=== PATIENT | male | born 1935 | race Caucasian/White ===

== ENCOUNTER 2017-12-12 13:06 | Inpatient (IN) | payer MEDICARE ==
[2017-12-12] MEDS ORDERED: SODIUM CHLORIDE 0.9% 500 ML IV STA (13:23)
--- NOTE | 2017-12-12 13:27 | ED ---
Syncope HPI - General Chief Complaint: Syncope Stated Complaint: Syncope Time Seen by Provider: 12/12/17 13:12 Source: patient, family Mode of arrival: ambulatory Limitations: no limitations - History of Present Illness Initial Comments: Patient is an 81-year-old male presenting for syncope. is bedside and states that approximately one hour ago, the patient stepped out side to the deck to get some fresh air and then when he came in, he collapsed striking the right side of his head on the floor. He denies any significant prodromal type symptoms other than some mild lightheadedness. After he collapsed, the states that he was blowing air through his mouth but had no tonic-clonic type activity and that he did urinate himself. Additionally, the symptoms lasted approximately 3-4 minutes and when he regained consciousness, he was not confused and was aware of what was going on. He also adamantly denies any significant symptoms including headache, nausea/vomiting/diarrhea, chest pain/ shortness breath, back pain, neck pain both before and after the event. He states that he is also very healthy and that he takes no medications. - Related Data Allergies Allergy/AdvReac Type Severity Reaction Status Date / Time No Known Allergies Allergy Verified 12/12/17 13:11 Review of Systems ROS Statement: Those systems with pertinent positive or pertinent negative responses have been documented in the HPI. Constitutional: Negative for chills, fatigue and fever. HENT: Negative for congestion. Respiratory: Negative for chest tightness, shortness of breath and wheezing. Negative for cough Cardiovascular: Negative for chest pain and palpitations. Positive for syncope Gastrointestinal: Negative for abdominal pain. Negative for abdominal distention , diarrhea, nausea and vomiting. Genitourinary: Negative for dysuria. Musculoskeletal: Negative for back pain, neck pain and neck stiffness. Skin: Positive for color change. Neurological: Negative for dizziness, speech difficulty, weakness and positive for light-headedness. Psychiatric/Behavioral: Negative for agitation and confusion. The patient is not nervous/anxious. ROS Other: All systems not noted in ROS Statement are negative. Past Medical History Past Medical History: No Reported History History of Any Multi-Drug Resistant Organisms: None Reported Additional Past Surgical History / Comment(s): kidney stone Past Psychological History: No Psychological Hx Reported Smoking Status: Former smoker Past Alcohol Use History: None Reported Past Drug Use History: None Reported General Exam - General Exam Comments Initial Comments: Constitutional: Pt is oriented to person, place, and time. Pt appears well- developed and well-nourished. No distress. HENT: Head: Normocephalic and small abrasion less than 1 cm on the lateral aspect of the left eye in the temporal region. Eyes: EOM are normal. Neck: Normal range of motion. Neck supple. Cardiovascular: Normal rate, regular rhythm, S1 normal, S2 normal and normal heart sounds. Exam reveals no gallop and no friction rub. No murmur heard. Pulmonary/Chest: Effort normal and breath sounds normal. No tachypnea and no bradypnea. No respiratory distress. No wheezes or rales noted. Abdominal: Soft. Bowel sounds are normal. Pt exhibits no shifting dullness, no distension, no pulsatile liver, no fluid wave, no abdominal bruit and no ascites. There is no tenderness. There is no rigidity, no rebound, no guarding, no tenderness at McBurney's point and negative John's sign. Musculoskeletal: Normal range of motion. Neurological: Pt is alert and oriented to person, place, and time. No cranial nerve deficit. Skin: Skin is warm and dry. No rash noted. Pt is not diaphoretic. No erythema. No pallor. Psychiatric: Pt has a normal mood and affect. Pt behavior is normal. Thought content normal. Limitations: no limitations Course Vital Signs 12/12/17 12/12/17 13:08 13:50 Temperature 98.0 F Pulse Rate 79 Pulse Rate [ 77 Sitting] Pulse Rate [ 80 Standing] Pulse Rate [ 75 Supine] Respiratory 20 Rate Blood Pressure 165/72 Blood Pressure 156/75 [Sitting] Blood Pressure 157/74 [Standing] Blood Pressure 162/76 [Supine] O2 Sat by Pulse 98 Oximetry EKG Findings - EKG Comments: EKG Findings:: EKG shows normal sinus rhythm with a rate of 75 bpm, FL interval 148, QRS 102, QTC 424. There is less than [address] elevation in lead V1 as well as V5. There are nonspecific T-wave inversions in leads V3, V4, V5, V6. Medical Decision Making - Medical Decision Making Laboratory studies showed a hemoglobin was stable at 13 and electrolytes did show mild hyperkalemia at 5.2. Glucose was normal at [address] showed no evidence of acute pathology. Troponin was also noted to be negative. However, chest x-ray did show some cardiomegaly and signs of possible bilateral effusions. EKG also showed some T-wave inversions in the lateral leads as well as ST elevation in V1. Therefore because of the patient's age of [age] years old as well as these findings and risk of repeat episode and other head trauma, it was felt that the patient should be placed in observation for further evaluation and treatment.Explained all labs and diagnostic test results and that we will admit patient to hospital. Pt is agreeable to plan and case has been discussed with Dr. Acevedo and they agree to accept the pt. - Lab Data Result diagrams: 12/12/17 13:33 12/12/17 13:33 Lab Results 12/12/17 12/12/17 12/12/17 Range/Units 13:33 13:33 13:33 WBC 9.0 (3.8-10.6) k/uL RBC 4.20 L (4.30-5.90) m/uL Hgb 13.0 (13.0-17.5) gm/dL Hct 39.2 (39.0-53.0) % MCV 93.3 (80.0-100.0) fL MCH 31.0 (25.0-35.0) pg MCHC 33.2 (31.0-37.0) g/dL RDW 13.1 (11.5-15.5) % Plt Count 288 (150-450) k/uL Neutrophils % 81 % Lymphocytes % 11 % Monocytes % 6 % Eosinophils % 1 % Basophils % 0 % Neutrophils # 7.3 (1.3-7.7) k/uL Lymphocytes # 1.0 (1.0-4.8) k/uL Monocytes # 0.6 (0-1.0) k/uL Eosinophils # 0.1 (0-0.7) k/uL Basophils # 0.0 (0-0.2) k/uL PT 11.0 (9.0-12.0) sec INR 1.1 (<1.2) APTT 21.9 L (22.0-30.0) sec Sodium 135 L (137-145) mmol/L Potassium 5.2 H (3.5-5.1) mmol/L Chloride 97 L (98-107) mmol/L Carbon Dioxide 28 (22-30) mmol/L Anion Gap 10 mmol/L BUN 22 H (9-20) mg/dL Creatinine 0.85 (0.66-1.25) mg/dL Est GFR (CKD-EPI)AfAm >90 (>60 ml/min/1.73 sqM) Est GFR (CKD-EPI)NonAf 81 (>60 ml/min/1.73 sqM) Glucose 121 H (74-99) mg/dL Calcium 9.4 (8.4-10.2) mg/dL Magnesium 2.1 (1.6-2.3) mg/dL Total Bilirubin 0.6 (0.2-1.3) mg/dL AST 37 (17-59) U/L ALT 35 (21-72) U/L Alkaline Phosphatase 100 (38-126) U/L Troponin I (0.000-0.034) ng/mL Total Protein 5.9 L (6.3-8.2) g/dL Albumin 3.4 L (3.5-5.0) g/dL Urine Color Urine Appearance (Clear) Urine pH (5.0-8.0) Ur Specific [place] (1.001-1.035) Urine Protein (Negative) Urine Glucose (UA) (Negative) Urine Ketones (Negative) Urine Blood (Negative) Urine Nitrite (Negative) Urine Bilirubin (Negative) Urine Urobilinogen (<2.0) mg/dL Ur Leukocyte Esterase (Negative) Urine RBC (0-5) /hpf Urine WBC (0-5) /hpf Ur Squamous Epith Cells (0-4) /hpf Amorphous Sediment (None) /hpf Urine Bacteria (None) /hpf Hyaline Casts (0-2) /lpf Granular Casts (0) /lpf Urine Mucus (None) /hpf 12/12/17 12/12/17 Range/Units 13:33 14:05 WBC (3.8-10.6) k/uL RBC (4.30-5.90) m/uL Hgb (13.0-17.5) gm/dL Hct (39.0-53.0) % MCV (80.0-100.0) fL MCH (25.0-35.0) pg MCHC (31.0-37.0) g/dL RDW (11.5-15.5) % Plt Count (150-450) k/uL Neutrophils % % Lymphocytes % % Monocytes % % Eosinophils % % Basophils % % Neutrophils # (1.3-7.7) k/uL Lymphocytes # (1.0-4.8) k/uL Monocytes # (0-1.0) k/uL Eosinophils # (0-0.7) k/uL Basophils # (0-0.2) k/uL PT (9.0-12.0) sec INR (<1.2) APTT (22.0-30.0) sec Sodium (137-145) mmol/L Potassium (3.5-5.1) mmol/L Chloride (98-107) mmol/L Carbon Dioxide (22-30) mmol/L Anion Gap mmol/L BUN (9-20) mg/dL Creatinine (0.66-1.25) mg/dL Est GFR (CKD-EPI)AfAm (>60 ml/min/1.73 sqM) Est GFR (CKD-EPI)NonAf (>60 ml/min/1.73 sqM) Glucose (74-99) mg/dL Calcium (8.4-10.2) mg/dL Magnesium (1.6-2.3) mg/dL Total Bilirubin (0.2-1.3) mg/dL AST (17-59) U/L ALT (21-72) U/L Alkaline Phosphatase (38-126) U/L Troponin I <0.012 (0.000-0.034) ng/mL Total Protein (6.3-8.2) g/dL Albumin (3.5-5.0) g/dL Urine Color Yellow Urine Appearance Cloudy (Clear) Urine pH 7.0 (5.0-8.0) Ur Specific [place] 1.012 (1.001-1.035) Urine Protein Negative (Negative) Urine Glucose (UA) Negative (Negative) Urine Ketones Negative (Negative) Urine Blood Negative (Negative) Urine Nitrite Negative (Negative) Urine Bilirubin Negative (Negative) Urine Urobilinogen <2.0 (<2.0) mg/dL Ur Leukocyte Esterase Large H (Negative) Urine RBC 2 (0-5) /hpf Urine WBC 38 H (0-5) /hpf Ur Squamous Epith Cells 1 (0-4) /hpf Amorphous Sediment Rare H (None) /hpf Urine Bacteria Rare H (None) /hpf Hyaline Casts 25 H (0-2) /lpf Granular Casts 4 (0) /lpf Urine Mucus Occasional H (None) /hpf Disposition Clinical Impression: Syncope and collapse, Head trauma Disposition: ADMITTED IP TO THIS HOSP Condition: Good Is patient prescribed a controlled substance at d/c from ED?: No Referrals: Fabricio Gregory DO [Primary Care Provider] - 1-2 days Decision to Admit Reason: Admit from EC Decision Date: 12/12/17 Decision Time: 15:06
[2017-12-12 13:52] LABS: Basophils % (A) 0 %; Eosinophils # (A) 0.1 k/uL (0-0.7); Eosinophils % (A) 1 %; HCT 39.2 % (39.0-53.0); Lymphocytes % (A) 11 %; MCHC 33.2 g/dL (31.0-37.0); MCV 93.3 fL (80.0-100.0); Mean Platelet Volume 7.7; Monocytes # (A) 0.6 k/uL (0-1.0); Monocytes % (A) 6 %; Neutrophils # (A) 7.3 k/uL (1.3-7.7); Neutrophils % (A) 81 %; Platelet Count 288 k/uL (150-450); RDW 13.1 % (11.5-15.5)
[2017-12-12 14:00] LABS: ALT 35 U/L (21-72); AST 37 U/L (17-59); Albumin 3.4 g/dL (3.5-5.0); Alkaline Phosphatase 100 U/L (38-126); Anion Gap 10 mmol/L; Blood Urea Nitrogen 22 mg/dL (9-20); Calcium 9.4 mg/dL (8.4-10.2); Carbon Dioxide 28 mmol/L (22-30); Chloride 97 mmol/L (98-107); Glucose 121 mg/dL (74-99); Magnesium 2.1 mg/dL (1.6-2.3); Potassium 5.2 mmol/L (3.5-5.1); Sodium 135 mmol/L (137-145); Total Bilirubin 0.6 mg/dL (0.2-1.3); Total Protein 5.9 g/dL (6.3-8.2)
[2017-12-12 14:10] LABS: INR 1.1 (<1.2); Partial Thromboplastin Time 21.9 sec (22.0-30.0)
[2017-12-12 14:28] LABS: Amorphous Sediment,Urine Rare /hpf; Appearance,Urine Cloudy (Clear); Bacteria,Urine Rare /hpf; Bilirubin,Urine Negative (Negative); Blood,Urine Negative (Negative); Color,Urine Yellow; Glucose,Urine (UA) Negative (Negative); Granular Casts,Urine 4 /lpf (0); Hyaline Casts,Urine 25 /lpf (0-2); Ketones,Urine Negative (Negative); Leukocyte Esterase,Urine Large (Negative); Mucus,Urine Occasional /hpf; Nitrite,Urine Negative (Negative); Protein,Urine Negative (Negative); RBC,Urine 2 /hpf (0-5); Specific Gravity,Urine 1.012 (1.001-1.035); Squamous Epithelial Cell,Urine 1 /hpf (0-4); Urobilinogen,Urine <2.0 mg/dL (<2.0); WBC,Urine 38 /hpf (0-5)
--- NOTE | 2017-12-12 14:43 | XR ---
EXAMINATION TYPE: XR chest 2V DATE OF EXAM: 12/12/2017 COMPARISON: NONE HISTORY: Syncope and weakness TECHNIQUE: Frontal and lateral views of the chest are obtained. FINDINGS: There is cardiomegaly with small bilateral pleural effusions and associated bibasilar atel ectasis and/or infiltrate. There is atherosclerotic change of thoracic aorta. There is multilevel spu rring in the thoracic spine. No pneumothorax is seen bilaterally. IMPRESSION: Correlate for CHF exacerbation as there is cardiomegaly with small bilateral pleural eff usions noted.
--- NOTE | 2017-12-12 14:55 | CT ---
EXAMINATION TYPE: CT brain alicja eldridge DATE OF EXAM: 12/12/2017 COMPARISON: NONE HISTORY: Patient complains of syncopal episode. Patient hit head just superior and lateral to the le ft orbit. Patient has neck pain at time of study. CT DLP: 1059.9 mGycm. Automated Exposure Control for Dose Reduction was Utilized. TECHNIQUE: CT scan of the head and cervical spine are performed without contrast. FINDINGS: There is no acute intracranial hemorrhage or midline shift shift identified. There is zeeshan tricular and sulcal prominence consistent with diffuse cerebral atrophy. There is low-attenuation in the periventricular white matter. The calvarium is intact. The globes are intact and the visualized s inuses are clear. Cervical spine is visualized in its entirety from C1 through upper thoracic levels and demonstrates s traightened alignment without evidence of acute fracture or dislocation. Prevertebral soft tissue ap pears within normal limits. The C1-C2 articulation is within normal limits on the coronal images. There is narrowing and spurring at level of the atlantodental interval. Vertebral body heights are ma intained. There is moderate to severe disc space narrowing C5-C6 and C6-C7 level. There is severe mul tilevel anterior and lateral spurring in the mid to lower cervical spine. Review of axial images shows uncovertebral facet degenerative changes right greater than left C3-C4 l evel contributing to moderate to advanced right-sided neural foraminal narrowing, bilateral C4-C5 lev el contributing to mild bilateral neural foraminal narrowing. There is marginal spurring and spur dis c complex effacing anterior thecal sac and causing [id number] bilateral neural foraminal narrow ing C5-C6 level. There is broad-based posterior spur disc complex effacing anterior thecal sac at C6- C7 level. Thyroid gland is felt within normal limits. Lung apices are clear. IMPRESSION: 1. There is no acute fracture or dislocation evident in the cervical spine. 2. No acute intracranial hemorrhage or effect, or midline shift is seen. There is mild to moderate di ffuse cerebral atrophy and chronic small vessel ischemic change noted.
[2017-12-12] MEDS ORDERED: NALOXONE 0.4 MG/ML 1 ML VIAL IV PRN (15:07)
[2017-12-12] MEDS ORDERED: LABETALOL 200 MG TAB PO STA (17:21)
[2017-12-12 17:47] VITALS: BMI 24.3
[2017-12-12 20:35] LABS: Glucose,Whole Blood 162 mg/dL (75-99)
[2017-12-12] MEDS: MELATONIN 3 MG TABLET PO SCH (22:35)
[2017-12-13 05:40] LABS: Glucose,Whole Blood 116 mg/dL (75-99)
[2017-12-13] MEDS: CHOLECALCIFEROL 1,000 UNIT TAB PO SCH (07:50)
[2017-12-13] MEDS: ASCORBIC ACID 500 MG TAB PO SCH (07:50)
--- NOTE | 2017-12-13 10:46 | P.HPIM ---
History of Present Illness This is a pleasant 81 years old male with past medical history of kidney stone who presents because he passed out yesterday. He was outside the house for a few minutes while he was getting inside he felt lightheadedness and then he passed out, then cement was witnessed by the patient was unresponsive for a few minutes, his eyes were open during the episodes. No tonic-clonic activity however patient has urinary incontinence as per , no bowel incontinence, no tongue biting. Patient woke up with no confusion. She denies chest pain, dyspnea, fever, change in urine or bowel habits as patient denies any dysuria or change in frequency. As per patient this is the first step To him In the ED patient had CT of the head and neck which shows no acute intracranial hemorrhage or midline shift. There is [id number] diffuse cerebral atrophy. CXR possible CHF Also on admission patient was noted to have bilateral leg swelling, left more than right Review of Systems CONSTITUTIONAL: No fever, no malaise, no fatigue. HEENT: No recent visual problems or hearing problems. Denied any sore throat. CARDIOVASCULAR: No orthopnea, PND, no palpitations, no syncope. PULMONARY: No shortness of breath, no cough, no hemoptysis. GASTROINTESTINAL: No diarrhea, no nausea, no vomiting, no abdominal pain. Normoactive bowel sounds. NEUROLOGICAL: No headaches, no weakness, no numbness. HEMATOLOGICAL: Denies any bleeding or petechiae. GENITOURINARY: Denies any burning micturition, frequency, or urgency. MUSCULOSKELETAL/RHEUMATOLOGICAL: Denies any joint pain, swelling, or any muscle pain. ENDOCRINE: Denies any polyuria or polydipsia. Past Medical History Past Medical History: No Reported History History of Any Multi-Drug Resistant Organisms: None Reported Additional Past Surgical History / Comment(s): kidney stone Past Anesthesia/Blood Transfusion Reactions: No Reported Reaction Past Psychological History: No Psychological Hx Reported Smoking Status: Former smoker Past Alcohol Use History: Rare Past Drug Use History: None Reported Medications and Allergies Home Medications Medication Instructions Recorded Confirmed Type Arginine [l-Arginine] 500 mg PO DAILY 12/12/17 12/12/17 History Ascorbic Acid [Vitamin C] 500 mg PO DAILY 12/12/17 12/12/17 History Cholecalciferol [Vitamin D3] 1,000 unit PO DAILY 12/12/17 12/12/17 History Garlic 1 tab PO DAILY 12/12/17 12/12/17 History Ginkgo Biloba [place] Extract [Ginkgo] 60 mg PO DAILY 12/12/17 12/12/17 History Melatonin 3 mg PO HS 12/12/17 12/12/17 History Multivitamins, Thera [Multivitamin 1 tab PO DAILY 12/12/17 12/12/17 History (formulary)] Ubidecarenone [Co Q-10] 100 mg PO DAILY 12/12/17 12/12/17 History Vision Essetial 1 tab PO DAILY 12/12/17 12/12/17 History Allergies Allergy/AdvReac Type Severity Reaction Status Date / Time No Known Allergies Allergy Verified 12/12/17 15:53 Physical Exam Vitals: Vital Signs Temp Pulse Pulse Pulse Pulse Resp BP 12/13/17 08:00 96.2 F L 77 18 12/13/17 03:15 96.6 F L 67 16 12/13/17 00:00 97.4 F L 68 16 12/12/17 20:00 97 F L 68 77 69 16 12/12/17 16:05 97.3 F L 74 16 12/12/17 15:46 97.3 F L 65 16 170/81 12/12/17 13:50 77 80 75 12/12/17 13:08 98.0 F 79 20 165/72 BP BP BP Pulse Ox 12/13/17 08:00 127/62 96 12/13/17 03:15 135/60 98 12/13/17 00:00 122/62 98 12/12/17 20:00 115/56 102/51 115/59 93 L 12/12/17 16:05 190/97 97 12/12/17 15:46 97 12/12/17 13:50 156/75 157/74 162/76 12/12/17 13:08 98 Intake and Output 12/12/17 12/13/17 12/13/17 22:59 06:59 14:59 Intake Total 120 240 Balance 120 240 Intake: Oral 120 240 Other: Voiding Method Toilet Toilet # Voids 1 1 1 # Bowel Movements 1 Weight 77.1 kg 75.3 kg GENERAL: The patient is alert and oriented x3, not in any acute distress. Well developed, well nourished. HEENT: Pupils are round and equally reacting to light. EOMI. No scleral icterus. No conjunctival pallor. Normocephalic, atraumatic. No pharyngeal erythema. No thyromegaly. CARDIOVASCULAR: S1 and S2 present. No murmurs, rubs, or gallops. PULMONARY: Chest is clear to auscultation, no wheezing or crackles. ABDOMEN: Soft, nontender, nondistended, normoactive bowel sounds. No palpable organomegaly. MUSCULOSKELETAL: No joint swelling or deformity. EXTREMITIES: No cyanosis, clubbing, or pedal edema. NEUROLOGICAL: Gross neurological examination did not reveal any focal deficits. SKIN: No rashes. Results CBC & Chem 7: 12/12/17 13:33 12/12/17 13:33 Labs: Abnormal Lab Results - Last 24 Hours (Table) 12/12/17 12/12/17 12/12/17 Range/Units 13:33 13:33 13:33 RBC 4.20 L (4.30-5.90) m/uL APTT 21.9 L (22.0-30.0) sec Sodium 135 L (137-145) mmol/L Potassium 5.2 H (3.5-5.1) mmol/L Chloride 97 L (98-107) mmol/L BUN 22 H (9-20) mg/dL Glucose 121 H (74-99) mg/dL POC Glucose (mg/dL) (75-99) mg/dL Total Protein 5.9 L (6.3-8.2) g/dL Albumin 3.4 L (3.5-5.0) g/dL Ur Leukocyte Esterase (Negative) Urine WBC (0-5) /hpf Amorphous Sediment (None) /hpf Urine Bacteria (None) /hpf Hyaline Casts (0-2) /lpf Urine Mucus (None) /hpf 12/12/17 12/12/17 12/13/17 Range/Units 14:05 20:34 05:39 RBC (4.30-5.90) m/uL APTT (22.0-30.0) sec Sodium (137-145) mmol/L Potassium (3.5-5.1) mmol/L Chloride (98-107) mmol/L BUN (9-20) mg/dL Glucose (74-99) mg/dL POC Glucose (mg/dL) 162 H 116 H (75-99) mg/dL Total Protein (6.3-8.2) g/dL Albumin (3.5-5.0) g/dL Ur Leukocyte Esterase Large H (Negative) Urine WBC 38 H (0-5) /hpf Amorphous Sediment Rare H (None) /hpf Urine Bacteria Rare H (None) /hpf Hyaline Casts 25 H (0-2) /lpf Urine Mucus Occasional H (None) /hpf Thrombosis Risk Factor Assmnt - Choose All That Apply Any of the Below Risk Factors Present?: Yes Each Risk Factor Represents 3 Points: Age 75 years or older Thrombosis Risk Factor Assessment Total Risk Factor Score: 3 Thrombosis Risk Factor Assessment Level: Moderate Risk Assessment and Plan Plan: -Syncope, continue with telemetry, we will order echo, call cardiology consult and neurology consult. Monitor lytes and vitals -Possible CHF exacerbation, patient has bilateral leg edema and possible CHF on CXR. Cardiology are seeing the patient. Check echo -Bilateral lower extremity edema, check Doppler to rule out DVT -Mild hyponatremia at 135, and hyperkalemia at 5.2. follow-up sodium level -Possible UTI with UA is positive for large leukocyte esterase and 38 white BCs in the urine, start ceftriaxone DVT prophylaxis heparin GI prophylaxis Pepcid PT/OT pending Prognosis is guarded
[2017-12-13] MEDS: cefTRIAXone IN SWFI 1,000 MG/10 ML SYRINGE IVP SCH (11:29)
--- NOTE | 2017-12-13 11:31 | US ---
EXAMINATION TYPE: US venous doppler duplex LE BI DATE OF EXAM: 12/13/2017 11:18 AM COMPARISON: NONE CLINICAL HISTORY: Leg swelling. SIDE PERFORMED: Bilateral TECHNIQUE: The lower extremity deep venous system is examined utilizing real time linear array sonog jostin with graded compression, doppler sonography and color-flow sonography. VESSELS IMAGED: External Iliac Vein (EIV) Common Femoral Vein Deep Femoral Vein Greater Saphenous Vein * Femoral Vein Popliteal Vein Proximal Calf Veins (* superficial vessels) Right Leg: Negative for DVT Left Leg: Negative for DVT Grayscale, color doppler, spectral doppler imaging performed of the deep veins of the lower extremiti es. There is normal flow, compressibility, vascular waveforms. IMPRESSION: No evident deep venous thrombosis at or above the knees. Follow-up as indicated.
[2017-12-13 11:57] LABS: Glucose,Whole Blood 117 mg/dL (75-99)
[2017-12-13] MEDS ORDERED: MULTIVITAMINS, THERA 1 EACH TAB PO SCH (12:00)
--- NOTE | 2017-12-13 13:24 | ECHOF ---
Referral Reason:Syncope MEASUREMENTS -------- HEIGHT: 180.3 cm WEIGHT: 75.3 kg BP: 127/62 IVSd: 1.1 cm (0.6 - 1.1) LVIDd: 3.3 cm (3.9 - 5.3) LVPWd: 1.0 cm (0.6 - 1.1) IVSs: 1.6 cm LVIDs: 2.4 cm LVPWs: 1.5 cm LAESV Index (A-L): 36.21 ml/m Ao Diam: 3.4 cm (2.0 - 3.7) AV Cusp: 1.5 cm (1.5 - 2.6) LA Diam: 3.2 cm (2.7 - 3.8) MV EXCURSION: 13.189 mm (> 18.000) MV EF SLOPE: 88 mm/s (70 - 150) EPSS: 1.5 cm MV E Jaswant: 1.31 m/s MV DecT: 148 ms MV A Jaswant: 0.78 m/s MV E/A Ratio: 1.69 AV maxP.84 mmHg AV meanP.07 mmHg AR PHT: 651 ms RAP: 5.00 mmHg RVSP: 8.46 mmHg FINDINGS -------- Sinus rhythm. This was a technically adequate study. The left ventricular size is normal. Left ventricular wall thickness is normal. Overall left vent ricular systolic function is low-normal with, an EF between 50 - 55 %. The right ventricle is normal in size and function. LA is moderately dilated 34-39 ml/m2 The right atrium is normal in size. There is mild aortic valve sclerosis. There is mild aortic regurgitation. There is mild aortic st enosis present. Peak/mean gradient across the Aortic Valve is 17.84mmHg / 9.07mmHg. Mild mitral annular calcification present. Mild mitral regurgitation is present. Mild tricuspid regurgitation present. The right ventricular systolic pressure, as measured by Doppl er, is 8.46mmHg. There is no pulmonic regurgitation present. The aortic root size is normal. Normal inferior vena cava with normal inspiratory collapse consistent with estimated right atrial pre ssure of 5 mmHg. There is no pericardial effusion. CONCLUSIONS -------- 1. Sinus rhythm. 2. This was a technically adequate study. 3. The left ventricular size is normal. 4. Left ventricular wall thickness is normal. 5. Overall left ventricular systolic function is low-normal with, an EF between 50 - 55 %. 6. LA is moderately dilated 34-39 ml/m2 7. There is mild aortic valve sclerosis. 8. There is mild aortic regurgitation. 9. There is mild aortic stenosis present. 10. Peak/mean gradient across the Aortic Valve is 17.84mmHg / 9.07mmHg. 11. Mild mitral annular calcification present. 12. Mild mitral regurgitation is present. 13. Mild tricuspid regurgitation present. 14. The right ventricular systolic pressure, as measured by Doppler, is 8.46mmHg. 15. There is no pulmonic regurgitation present. 16. The aortic root size is normal. 17. Normal inferior vena cava with normal inspiratory collapse consistent with estimated right atrial pressure of 5 mmHg. 18. There is no pericardial effusion. [employer]ER: Lisa Parsons RDCS
--- NOTE | 2017-12-13 15:39 | P.CRDCN ---
History of Present Illness Consult date: 12/13/17 Requesting physician: Jennifer Acevedo Consult reason: sycope Chief complaint: Syncope History of present illness: This is a pleasant 81-year-old gentleman with no prior documented history of coronary artery disease, no history of hypertension, diabetes, or hyperlipidemia. He is a nonsmoker. He presents to the hospital via EMS after experiencing a syncopal episode. According to the patient, he was walking into the house from his back back, felt lightheaded, and suddenly passed out without warning. His found him lying prone on the floor, she states that his eyes were opened and fixed and he was having some snoring type of respirations. Ultimately the snoring respirations stopped and she was unable to wake him. Upon wakening, patient had loss of bladder function, he was also quite confused and once he woke up. EMS was called, patient was alert and oriented on their arrival. Blood pressure on arrival here 165/70, heart rate in the 70s, 98% on room air. Orthostatics were obtained times one which came back to be negative. Blood pressure at noon time 128/60 with a heart rate in the 70s, 98% on room air. EKG on arrival here showed a normal sinus rhythm with ST-T wave changes noted in the anterior lateral leads. Laboratory data was reviewed, CBC normal, sodium 135, potassium 5.2, BUN 22, creatinine 0.8. Mag level 2.0, troponin 0.012. Chest x-ray on arrival showed congestive heart failure exacerbation with small bilateral pleural effusions. CAT scan of the head and cervical spine did not reveal any acute intracranial hemorrhage or affect, no midline shift. There is mild to moderate diffuse cerebral atrophy and chronic small vessel ischemic change noted. No acute fracture or dislocation of the spine. Venous duplex study was performed which did not reveal any evidence of DVT at or above the knees. At the time of my examination today, patient denies any dizziness or lightheadedness. Just feeling weak in general. Denies any shortness of breath. Past Medical History Past Medical History: No Reported History History of Any Multi-Drug Resistant Organisms: None Reported Additional Past Surgical History / Comment(s): kidney stone Past Anesthesia/Blood Transfusion Reactions: No Reported Reaction Past Psychological History: No Psychological Hx Reported Smoking Status: Former smoker Past Alcohol Use History: Rare Past Drug Use History: None Reported Medications and Allergies Home Medications Medication Instructions Recorded Confirmed Type Arginine [l-Arginine] 500 mg PO DAILY 12/12/17 12/12/17 History Ascorbic Acid [Vitamin C] 500 mg PO DAILY 12/12/17 12/12/17 History Cholecalciferol [Vitamin D3] 1,000 unit PO DAILY 12/12/17 12/12/17 History Garlic 1 tab PO DAILY 12/12/17 12/12/17 History Ginkgo Biloba [place] Extract [Ginkgo] 60 mg PO DAILY 12/12/17 12/12/17 History Melatonin 3 mg PO HS 12/12/17 12/12/17 History Multivitamins, Thera [Multivitamin 1 tab PO DAILY 12/12/17 12/12/17 History (formulary)] Ubidecarenone [Co Q-10] 100 mg PO DAILY 12/12/17 12/12/17 History Vision Essetial 1 tab PO DAILY 12/12/17 12/12/17 History Allergies Allergy/AdvReac Type Severity Reaction Status Date / Time No Known Allergies Allergy Verified 12/12/17 15:53 Physical Exam Vitals: Vital Signs Temp Pulse Pulse Pulse Pulse Resp BP 12/13/17 12:54 12/13/17 11:36 96.8 F L 72 18 12/13/17 08:00 96.2 F L 77 18 12/13/17 03:15 96.6 F L 67 16 12/13/17 00:00 97.4 F L 68 16 12/12/17 20:00 97 F L 68 77 69 16 12/12/17 16:05 97.3 F L 74 16 12/12/17 15:46 97.3 F L 65 16 170/81 BP BP BP Pulse Ox 12/13/17 12:54 128/62 12/13/17 11:36 182/86 98 12/13/17 08:00 127/62 96 12/13/17 03:15 135/60 98 12/13/17 00:00 122/62 98 12/12/17 20:00 115/56 102/51 115/59 93 L 12/12/17 16:05 190/97 97 12/12/17 15:46 97 Intake and Output 12/12/17 12/13/17 12/13/17 22:59 06:59 14:59 Intake Total 120 360 Balance 120 360 Intake: Oral 120 360 Other: Voiding Method Toilet Toilet # Voids 1 1 3 # Bowel Movements 1 Weight 77.1 kg 75.3 kg PHYSICAL EXAMINATION: GENERAL: 81-year-old gentleman in no apparent distress at the time of my examination. HEENT: Head is atraumatic, normocephalic. Pupils equal, round. Sclera anicteric. Conjunctiva are clear. Mucous membranes of the mouth are moist. Neck is supple. There is no elevated jugular venous pressure.] bruit is heard. HEART EXAMINATION: Heart S1, S2 normal. No murmur or gallop heard. CHEST EXAMINATION:lungs are clear with mild diminished air entry to bilateral bases. ABDOMEN: Soft, nontender. Bowel sounds are heard. No organomegaly noted. EXTREMITIES: 2+ peripheral pulses with no evidence of peripheral edema and no calf tenderness noted. NEUROLOGIC patient is awake, alert and oriented -3. . Results 12/12/17 13:33 12/12/17 13:33 Cardiac Enzymes 12/12/17 Range/Units 13:33 Troponin I <0.012 (0.000-0.034) ng/mL Current Medications Generic Name Dose Route Start Last Admin Trade Name Freq PRN Reason Stop Dose Admin Ascorbic Acid 500 mg 12/13/17 09:00 12/13/17 07:50 Vitamin C PO 500 mg DAILY ELIZABET Administration Ceftriaxone Sodium 1,000 mg 12/13/17 11:00 12/13/17 11:29 Rocephin IVP 1,000 mg Q24HR ELIZABET Administration Cholecalciferol 1,000 unit 12/13/17 09:00 12/13/17 07:50 Vitamin D3 PO 1,000 unit DAILY ELIZABET Administration Famotidine 20 mg 12/13/17 21:00 Pepcid PO BID ELIZABET Heparin Sodium (Porcine) 5,000 unit 12/13/17 21:00 Heparin SQ Q12HR ELIZABET Melatonin 3 mg 12/12/17 21:00 12/12/17 22:35 Melatonin PO 3 mg HS ELIZABET Administration Naloxone HCl 0.2 mg 12/12/17 15:07 Narcan IV Q2M PRN Opioid Reversal Intake and Output 12/12/17 12/13/17 12/13/17 22:59 06:59 14:59 Intake Total 120 360 Balance 120 360 Intake: Oral 120 360 Other: Voiding Method Toilet Toilet # Voids 1 1 3 # Bowel Movements 1 Weight 77.1 kg 75.3 kg 12/12/17 13:33 12/12/17 13:33 EKG Interpretations (text) EKG shows normal sinus rhythm with ST-T wave changes in the inferior lateral leads. Assessment and Plan Plan: Assessment and plan #1 syncope, rule out cardiac causes versus seizures. CT of the brain did not reveal any acute intracranial hemorrhage or mass effect, no midline shift. There is mild to moderate diffuse cerebral atrophy and chronic small vessel ischemic change noted. #2 mild congestive heart failure, LV function unknown #3 accelerated hypertension #4 hyperkalemia Plan We will obtain an echocardiogram with Doppler study. Request orthostatic blood pressure and heart rate every shift. Continue to monitor for any tachycardia or bradycardia arrhythmias. We will also obtain a BNP level. We will start the patient on beta aaron, GERRI inhibitor. BiLateral carotid duplex study. Neurology consultation has also been requested. Further recommendations to follow. DNP note has been reviewed, I agree with a documented findings and plan of care. Patient was seen and examined.
[2017-12-13] MEDS: LOSARTAN 25 MG TAB PO SCH (16:52)
[2017-12-13] MEDS: CARVEDILOL 3.125 MG TAB PO SCH (16:53)
--- NOTE | 2017-12-13 18:18 | CT ---
EXAMINATION TYPE: CT chest angio for PE without and with contrast and with 3-D reconstruction renderi ngs. DATE OF EXAM: 12/13/2017 COMPARISON: NONE HISTORY: R/O PE vs. Dissection CT DLP: 702.7 mGycm Automated exposure control for dose reduction was used. CONTRAST: CT Chest for pulmonary embolism performed with without and with IV Contrast, patient inject ed with 100 mL of Isovue 370. 3-D Reconstruction renderings. FINDINGS: AIRWAYS: The airways are clear. LUNGS AND PLEURAL SPACES: There are moderately prominent bilateral pleural effusions which appear dep endent, there is associated passive atelectasis of one third of the left lower lobe and one third of the right lower. Concurrent bronchopneumonia can only be excluded clinically. Otherwise, the lungs ar e clear bilaterally. MEDIASTINUM: There is satisfactory enhancement of the pulmonary artery and its branches, there is no CT evidence for pulmonary embolism. The central pulmonary arterial tree is mildly dilated, suggesting pulmonary hypertension. There is aortic ectasia with mildly enlarged ascending aortic diameter at 4. 1 cm, top normal being 3.9 cm however. There are no greater than 1 cm hilar or mediastinal lymph node s. There is mild cardiomegaly with panchamber enlargement and coronary calcifications. There is mild thickening of the pericardium diffusely, consistent with fluid and/or pericardial thickening. OTHER: No additional significant abnormality is seen. IMPRESSION: 1. POSITIVE FOR BILATERAL PLEURAL EFFUSIONS W BIBASILAR ATELECTASIS. 2. Aortic ectasia with mild descending aortic caliber dilation. 3. Negative for pulmonary embolism. 4. Additional findings.
--- NOTE | 2017-12-13 18:46 | PN ---
PROGRESS NOTE Please refer to the detailed consultation dictated by iMryam Miranda nurse practitioner. I evaluated Mr. Gonzalez and spent substantial time with the patient and his . His clinical presentation of syncope is a matter of concern. The patient has been reasonably active lately. Clinically there is evidence of an ejection systolic murmur at the base. There were no significant orthostatic changes. He has no major past medical history other than hypertension. However, I am recommending that we order a D- dimer test, and if this is abnormal we should evaluate for possible pulmonary embolism. Clinically it does not appear to be so, but given his presentation with syncope, I am recommending a D-dimer. Please refer to the rest of the consultation by Miryam Miranda nurse practitioner. MICHELLE / IJN: [id number] /
[2017-12-13] MEDS: HEPARIN SODIUM,PORCINE 5,000 UNIT/ML 1 ML VIAL SQ SCH (20:49)
[2017-12-13] MEDS: MELATONIN 3 MG TABLET PO SCH (20:49)
[2017-12-13] MEDS: FAMOTIDINE 20 MG TAB PO SCH (20:49)
[2017-12-13 21:22] VITALS: RESP 18
[2017-12-14 06:19] LABS: Basophils % (A) 0 %; Eosinophils # (A) 0.2 k/uL (0-0.7); Eosinophils % (A) 4 %; HCT 33.3 % (39.0-53.0); HGB 10.9 gm/dL (13.0-17.5); Lymphocytes # (A) 1.1 k/uL (1.0-4.8); Lymphocytes % (A) 19 %; MCH 30.6 pg (25.0-35.0); MCHC 32.6 g/dL (31.0-37.0); MCV 93.8 fL (80.0-100.0); Mean Platelet Volume 7.2; Monocytes # (A) 0.4 k/uL (0-1.0); Monocytes % (A) 7 %; Neutrophils # (A) 3.8 k/uL (1.3-7.7); Neutrophils % (A) 68 %; Platelet Count 251 k/uL (150-450); RBC 3.55 m/uL (4.30-5.90); WBC 5.6 k/uL (3.8-10.6)
[2017-12-14 06:29] LABS: Anion Gap 8 mmol/L; Blood Urea Nitrogen 14 mg/dL (9-20); Calcium 8.8 mg/dL (8.4-10.2); Carbon Dioxide 27 mmol/L (22-30); Chloride 100 mmol/L (98-107); Glucose 89 mg/dL (74-99); Potassium 4.6 mmol/L (3.5-5.1); Sodium 135 mmol/L (137-145)
[2017-12-14] MEDS: CARVEDILOL 3.125 MG TAB PO SCH ×2 (06:43→17:10)
[2017-12-14] MEDS: ASCORBIC ACID 500 MG TAB PO SCH (08:01)
[2017-12-14] MEDS: LOSARTAN 25 MG TAB PO SCH (08:01)
[2017-12-14] MEDS: HEPARIN SODIUM,PORCINE 5,000 UNIT/ML 1 ML VIAL SQ SCH ×2 (08:01→20:02)
[2017-12-14] MEDS: FAMOTIDINE 20 MG TAB PO SCH ×2 (08:01→20:02)
[2017-12-14] MEDS: CHOLECALCIFEROL 1,000 UNIT TAB PO SCH (08:01)
[2017-12-14] MEDS: cefTRIAXone IN SWFI 1,000 MG/10 ML SYRINGE IVP SCH (08:01)
[2017-12-14] MEDS: ASPIRIN 81 MG PO SCH (08:01)
--- NOTE | 2017-12-14 08:11 | US ---
EXAMINATION TYPE: US carotid duplex BILAT DATE OF EXAM: 12/13/2017 COMPARISON: NONE CLINICAL HISTORY: Syncope. Syncope EXAM MEASUREMENTS: RIGHT: Peak Systolic Velocity (PSV) cm/sec ----- Right CCA: 74.0 ----- Right ICA: 122.0 ----- Right ECA: 100.3 ICA/CCA ratio: 1.6 RIGHT: End Diastole cm/sec ----- Right CCA: 17.3 ----- Right ICA: 43.1 ----- Right ECA: 0 LEFT: Peak Systolic Velocity (PSV) cm/sec ----- Left CCA: 46.2 ----- Left ICA: 112.1 ----- Left ECA: 72.7 ICA/CCA ratio: 2.4 LEFT: End Diastole cm/sec ----- Left CCA: 9.1 ----- Left ICA: 39.2 ----- Left ECA: 0 VERTEBRALS (direction of flow): Right Vertebral: Antegrade Left Vertebral: Antegrade Rhythm: Normal Bilateral plaque visualized vessels dive deep. No significant stenosis seen Grayscale, color Doppler, spectral Doppler imaging performed of the carotid arteries. IMPRESSION: No hemodynamic significant stenosis of the proximal internal carotid arteries bilaterall y by Doppler criteria, an indirect measurement of carotid stenosis
--- NOTE | 2017-12-14 10:57 | CONS ---
CONSULTATION DATE OF CONSULTATION: 12/13/2017 CHIEF COMPLAINT: Syncope. HISTORY OF PRESENT ILLNESS: Mr. Gonzalez is a pleasant 81-year-old male, who is being evaluated today on 12/13/2017 by the Neurology Service per the request of Dr. Acevedo for a syncopal spell. The patient had just walked into his house when he suddenly felt very lightheaded and had a syncopal episode. His did witness the event and she states that he remained unconscious for approximately 1-2 minutes. No seizure-like activity was described. He did have urinary incontinence. No tongue biting occurred. No head injury was described. When the patient woke up, he was at his baseline without any confusion or drowsiness. EMS was called and the patient was transferred to [facility] Emergency Room for further management. A CT scan of the brain was done, which showed generalized atrophy and small-vessel ischemic changes. His CBC and cardiac enzymes were normal. His comprehensive metabolic profile showed hyperkalemia at 5.2, slightly elevated BUN at 22, and reduced protein and albumin at 5.9 and 3.4, respectively. His BNP was elevated at 1780. His urinalysis showed 38 WBCs with large leukocyte esterase. In the emergency room, he was noticed to have significant swelling mainly in his left lower extremity. A venous Doppler was done, which showed no evidence of any thrombosis. At the time of my evaluation, the patient is lying in his bed and appears to be in no acute distress. His and daughters were at bedside and they state that he is at his baseline. He has not had any recurrence of any presyncopal or syncopal spells. PAST MEDICAL HISTORY: Nephrolithiasis. SOCIAL HISTORY: The patient is a former smoker. He rarely drinks alcohol. He denies any drug use. FAMILY HISTORY: Noncontributory. HOME MEDICATIONS: Reviewed in the chart. ALLERGIES: No known drug allergies. REVIEW OF SYSTEMS: As mentioned above and otherwise negative. PHYSICAL EXAM: Vital signs show a temperature of 97.5, pulse 66, respiration 16, blood pressure 160/76. Orthostatics were done and no significant hypotension was seen. GENERAL APPEARANCE: The patient is a well-developed, elderly male, who appears to be in no acute distress. HEENT: Normocephalic, atraumatic, no facial asymmetry is seen. NECK: Supple with no masses felt. CARDIOVASCULAR: Regular rate and rhythm. ABDOMEN: Nontender, nondistended. EXTREMITIES: Showed no edema or clubbing. NEUROLOGICAL EXAM: The patient is alert, aware and oriented x3. Speech and language are normal. Strength is full in all 4 extremities. Sensory exam was normal to light touch in all 4 extremities. No facial asymmetry is seen on cranial nerve testing. No tremors or seizure-like activity is seen. IMPRESSION: 1. Syncopal spell. 2. Acute urinary tract infection. 3. Small vessel ischemic disease. RECOMMENDATION: The patient's episode is more consistent with a cardiovascular etiology for his syncope. No seizure-like activity was witnessed and the patient did have significant lightheadedness prior to the syncope. Cardiology has been consulted and I do recommend further cardiovascular workup. An EEG has been ordered. I do recommend antibiotic therapy for his urinary tract infection. As for his small vessel ischemic disease, I will start him on aspirin 81 mg daily. Continue the rest of your current workup and management. I will continue to follow with you. Further recommendations to follow. Thank you for allowing me to participate in the care of your patient. If you have any questions, please feel free to contact me. MMODL / IJN: [id number] /
--- NOTE | 2017-12-14 13:00 | P.PN ---
Subjective This is a pleasant 81 years old male with past medical history of kidney stone who presents because he passed out yesterday. He was outside the house for a few minutes while he was getting inside he felt lightheadedness and then he passed out, then cement was witnessed by the patient was unresponsive for a few minutes, his eyes were open during the episodes. No tonic-clonic activity however patient has urinary incontinence as per , no bowel incontinence, no tongue biting. Patient woke up with no confusion. She denies chest pain, dyspnea, fever, change in urine or bowel habits as patient denies any dysuria or change in frequency. As per patient this is the first step To him In the ED patient had CT of the head and neck which shows no acute intracranial hemorrhage or midline shift. There is [id number] diffuse cerebral atrophy. CXR possible CHF Also on admission patient was noted to have bilateral leg swelling, left more than right Objective - Vital Signs Vital signs: Vital Signs Temp 97.0 F L 12/14/17 11:09 Pulse 56 L 12/14/17 11:09 Resp 18 12/14/17 11:09 BP 183/86 12/14/17 11:09 Pulse Ox 98 12/14/17 11:09 Intake & Output 12/13/17 12/14/17 12/14/17 18:59 06:59 18:59 Intake Total 480 Balance 480 Weight 75.6 kg Intake: Oral 480 Other: Voiding Method Toilet # Voids 1 1 - Exam GENERAL: The patient is alert and oriented x3, not in any acute distress. Well developed, well nourished. HEENT: Pupils are round and equally reacting to light. EOMI. No scleral icterus. No conjunctival pallor. Normocephalic, atraumatic. No pharyngeal erythema. No thyromegaly. CARDIOVASCULAR: S1 and S2 present. No murmurs, rubs, or gallops. PULMONARY: Chest is clear to auscultation, no wheezing or crackles. ABDOMEN: Soft, nontender, nondistended, normoactive bowel sounds. No palpable organomegaly. MUSCULOSKELETAL: No joint swelling or deformity. EXTREMITIES: No cyanosis, clubbing, or pedal edema. NEUROLOGICAL: Gross neurological examination did not reveal any focal deficits. SKIN: No rashes. - Labs CBC & Chem 7: 12/14/17 05:39 12/14/17 05:39 Labs: Abnormal Lab Results - Last 24 Hours (Table) 12/13/17 12/14/17 12/14/17 Range/Units 15:04 05:39 05:39 RBC 3.55 L (4.30-5.90) m/uL Hgb 10.9 L (13.0-17.5) gm/dL Hct 33.3 L (39.0-53.0) % D-Dimer 4.34 H (<0.60) mg/L FEU Sodium 135 L (137-145) mmol/L Assessment and Plan Plan: -Syncope, continue with telemetry, echo: mild , EF 55%, call cardiology consult and neurology consult. EEG: done the results, Monitor lytes and vitals -Possible CHF exacerbation, patient has bilateral leg edema and possible CHF on CXR. Cardiology are seeing the patient. echo: mild , EF 55%. Pt has high D- Dimer ordered by cardiology team , followed by CTPA: no PE, has B/L pleural effusion and atelectasis , we will call pulmonary consult for evaluation -Bilateral lower extremity edema, venous Doppler : no LE DVT -Microvascular ischemic vessel disease : pt is started on aspirin by the neurology team -Mild hyponatremia at 135, and hyperkalemia at 5.2. follow-up sodium level, fluid restriction -Possible UTI with UA is positive for large leukocyte esterase and 38 white BCs in the urine, start ceftriaxone -HTN: started no Losartan 25 mg daily and coreg 3.125 mg bid by the cardiology team , add lasix 40 mg daily ,f/u BP DVT prophylaxis heparin GI prophylaxis Pepcid PT/OT pending Prognosis is guarded Time with Patient: Greater than 30
[2017-12-14] MEDS: FUROSEMIDE 40 MG TAB PO SCH (13:35)
--- NOTE | 2017-12-14 15:28 | P.PN ---
Subjective Progress Note Date: 12/14/17 This is a pleasant 81-year-old gentleman with no prior documented history of coronary artery disease, no history of hypertension, diabetes, or hyperlipidemia. He is a nonsmoker. He presents to the hospital via EMS after experiencing a syncopal episode. According to the patient, he was walking into the house from his back back, felt lightheaded, and suddenly passed out without warning. His found him lying prone on the floor, she states that his eyes were opened and fixed and he was having some snoring type of respirations. Ultimately the snoring respirations stopped and she was unable to wake him. Upon wakening, patient had loss of bladder function, he was also quite confused and once he woke up. EMS was called, patient was alert and oriented on their arrival. Blood pressure on arrival here 165/70, heart rate in the 70s, 98% on room air. Orthostatics were obtained times one which came back to be negative. Blood pressure at noon time 128/60 with a heart rate in the 70s, 98% on room air. EKG on arrival here showed a normal sinus rhythm with ST-T wave changes noted in the anterior lateral leads. Laboratory data was reviewed, CBC normal, sodium 135, potassium 5.2, BUN 22, creatinine 0.8. Mag level 2.0, troponin 0.012. Chest x-ray on arrival showed congestive heart failure exacerbation with small bilateral pleural effusions. CAT scan of the head and cervical spine did not reveal any acute intracranial hemorrhage or affect, no midline shift. There is mild to moderate diffuse cerebral atrophy and chronic small vessel ischemic change noted. No acute fracture or dislocation of the spine. Venous duplex study was performed which did not reveal any evidence of DVT at or above the knees. At the time of my examination today, patient denies any dizziness or lightheadedness. Just feeling weak in general. Denies any shortness of breath. 12/14/2017 Patient was seen and examined this morning, echocardiogram with Doppler study was performed which revealed an ejection fraction of 50-55%. Orthostasis noted. Patient did undergo a CAT scan of the chest because of abnormal d-dimer , this was negative for pulmonary embolism. Blood pressure 128/80 with a heart rate in the 60s, 96% on room air. White blood cell count 5.6, hemoglobin 10.9, platelet count 251. Sodium 135, potassium 4.6, BUN 14, creatinine 0.8. Objective - Vital Signs Vital signs: Vital Signs Temp 97.0 F L 12/14/17 11:09 Pulse 56 L 12/14/17 11:09 Resp 18 12/14/17 11:09 BP 183/86 12/14/17 11:09 Pulse Ox 98 12/14/17 11:09 Intake & Output 12/13/17 12/14/17 12/14/17 18:59 06:59 18:59 Intake Total 480 240 Balance 480 240 Weight 75.6 kg Intake: Oral 480 240 Other: Voiding Method Toilet # Voids 1 1 1 # Bowel Movements 0 - Exam PHYSICAL EXAMINATION: GENERAL: 81-year-old gentleman in no apparent distress at the time of my examination. HEENT: Head is atraumatic, normocephalic. Pupils equal, round. Sclera anicteric. Conjunctiva are clear. Mucous membranes of the mouth are moist. Neck is supple. There is no elevated jugular venous pressure.] bruit is heard. HEART EXAMINATION: Heart S1, S2 normal. No murmur or gallop heard. CHEST EXAMINATION:lungs are clear with mild diminished air entry to bilateral bases. ABDOMEN: Soft, nontender. Bowel sounds are heard. No organomegaly noted. EXTREMITIES: 2+ peripheral pulses with no evidence of peripheral edema and no calf tenderness noted. NEUROLOGIC patient is awake, alert and oriented -3. - Labs CBC & Chem 7: 12/14/17 05:39 12/14/17 05:39 Labs: Abnormal Lab Results - Last 24 Hours (Table) 12/13/17 12/14/17 12/14/17 Range/Units 15:04 05:39 05:39 RBC 3.55 L (4.30-5.90) m/uL Hgb 10.9 L (13.0-17.5) gm/dL Hct 33.3 L (39.0-53.0) % D-Dimer 4.34 H (<0.60) mg/L FEU Sodium 135 L (137-145) mmol/L Assessment and Plan Plan: Assessment and plan #1 syncope, rule out cardiac causes versus seizures. CT of the brain did not reveal any acute intracranial hemorrhage or mass effect, no midline shift. There is mild to moderate diffuse cerebral atrophy and chronic small vessel ischemic change noted. #2 mild congestive heart failure, LV function unknown #3 accelerated hypertension #4 hyperkalemia Plan Echocardiogram with Doppler study was performed which revealed a normal left ventricular systolic function. No evidence of significant orthostasis. No evidence of tachycardia or bradycardia arrhythmias. From cardiology's perspective, patient will follow-up appointment to see Dr. RHODA Rojas in the office in 4-5 weeks. He also recommend patient have a 30 day event monitor on discharge. DNP note has been reviewed, I agree with a documented findings and plan of care. Patient was seen and examined.
--- NOTE | 2017-12-14 19:48 | EEG ---
ELECTROENCEPHALOGRAM REPORT DATE OF SERVICE: 12/14/2017 REASON FOR TESTING: Syncope. DESCRIPTION OF THE PROCEDURE: This EEG was performed using a 21-channel digital electroencephalograph, following international 10-20 system. DESCRIPTION OF THE RECORDING: From the beginning of the tracing, and with the patient's eyes closed, the background rhythm was mostly consisting of 8-9 Hz alpha frequency in the posterior occipital leads. No obvious asymmetry is seen. Photic stimulation was performed with a minimal driving response seen. No pathological waves were elicited. Hyperventilation was not performed. Occasional muscle and movement artifacts are seen. The patient does reach stage II of sleep during the tracing and occasional sleep spindles are seen. No epileptiform discharges were seen. His EKG lead showed a regular rate and rhythm. INTERPRETATION: This asleep and awake EEG can be considered within normal limits. There was no asymmetry seen. No epileptiform discharges were noticed. The absence of epileptiform discharges does not rule out the diagnosis of epilepsy; therefore clinical correlation is recommended. MICHELLE / EMIR: [id number] /
[2017-12-14] MEDS: MELATONIN 3 MG TABLET PO SCH (20:02)
--- NOTE | 2017-12-14 23:14 | P.PN ---
Subjective Progress Note Date: 12/14/17 Principal diagnosis: Syncope, AMS Neurology is following on an 81-year-old male for syncopal spell. Patient was ambulating at home and spouse witnessed the patient's having syncopal episode. Patient remained unconscious for approximately 1-2 minutes. No seizure activity was observed or demonstrated. Patient did have urinary incontinence during the event. No tongue biting occurred. No head injury was described. Upon waking, patient was at baseline without any confusion or drowsiness. EMS transferred patient to the emergency room. CT of the brain was done which showed generalized atrophy and chronic small vessel ischemic changes. CBC, cardiac enzymes were previously normal. CMP noted hyperkalemia, slightly elevated BUN and reduced protein and albumin. BNP was elevated. UA showed elevated WBCs with large leukoesterase. Venous Doppler was done to investigate the left lower extremity edema. No evidence of thrombosis was found. On contact, the patient is supine in bed, resting, no acute distress. Patient is alert and oriented 3 with spouse at the bedside. Interval update 12/14/17: Patient is alert and oriented 3 with spouse at the bedside, no acute distress. Patient's EEG was within normal limits. Carotid Doppler did not identify any hemodynamically significant stenosis. He was seen by cardiology and cardiology is recommending further workup outpatient. He denies any recurrent symptoms since initial neurology consult yesterday. He is otherwise stable at this time. Objective - Vital Signs Vital signs: Vital Signs Temp 98.4 F 12/14/17 20:00 Pulse 56 L 12/14/17 20:00 Resp 18 12/14/17 20:00 BP 163/80 12/14/17 20:00 Pulse Ox 97 12/14/17 20:00 Intake & Output 12/14/17 12/14/17 12/15/17 06:59 18:59 06:59 Intake Total 720 10 Balance 720 10 Weight 75.6 kg Intake: IV 10 0.9 10 Oral 720 Other: Voiding Method Toilet Toilet # Voids 1 1 1 # Bowel Movements 0 - Exam General appearance: Alert & oriented x3, no apparent distress. Head: Atraumatic, normocephalic, normal inspection Eyes: Well appearance, PERRLA, EOMI. Absent scleral icterus, conjunctival injection, nystagmus, periorbital swelling. Ear, nose and throat: Normal exam, mucous membranes moist Neck: Normal inspection, absent tenderness, lymphadenopathy. Respiratory: No increased work of breathing Cardiovascular: Regular rate, rhythm GI/abdominal: Normal bowel sounds, nondistended, no tenderness, no guarding, no rebound, no rigidity. Extremities: All range of motion, normal capillary refill, no tenderness, pedal edema joint swelling, calf tenderness. Neurological: cranial nerves II through XII intact no lateralizing weakness no seizure activity noted on physical exam no pronator drift and no nystagmus. strength in all 4 extremities is equal and symmetrical at 4+ out of 5 Sensation 4 extremities is equal to light touch. Psychological: Mood and affect appropriate for setting. - Labs CBC & Chem 7: 12/14/17 05:39 12/14/17 05:39 Labs: Abnormal Lab Results - Last 24 Hours (Table) 12/14/17 12/14/17 Range/Units 05:39 05:39 RBC 3.55 L (4.30-5.90) m/uL Hgb 10.9 L (13.0-17.5) gm/dL Hct 33.3 L (39.0-53.0) % Sodium 135 L (137-145) mmol/L Assessment and Plan (1) Syncope and collapse Current Visit: Yes Status: Acute Code(s): R55 - SYNCOPE AND COLLAPSE SNOMED Code(s): 116780719 Plan: 1. Syncope: Imaging and testing is negative for neurological etiology at this time. Patient is currently being worked up by cardiology both prior to discharge and further workup recommended post discharge. At this point, patient's symptoms appear to be more likely related to cardiac etiology. Further neurological workup can be performed outpatient if cardiac etiology is excluded at a later date. Routine neurological workup for syncopal related event is negative at this time and the patient can be cleared from a neurological standpoint The patient has returned to baseline with no new symptoms. Continue 81 mg aspirin post discharge. Advise patient to contact our office within 10-14 days of discharge for follow- up office visit. status: Clear for discharge from a neurological standpoint I have discussed the plan of care with the physician prior to implementation and he agrees with the plan as implemented.
[2017-12-15] MEDS: CARVEDILOL 3.125 MG TAB PO SCH (06:31)
[2017-12-15 06:57] LABS: Basophils % (A) 0 %; Eosinophils # (A) 0.2 k/uL (0-0.7); Eosinophils % (A) 4 %; HCT 37.6 % (39.0-53.0); HGB 12.4 gm/dL (13.0-17.5); Lymphocytes # (A) 1.1 k/uL (1.0-4.8); Lymphocytes % (A) 19 %; MCH 30.5 pg (25.0-35.0); MCHC 33.2 g/dL (31.0-37.0); Monocytes # (A) 0.4 k/uL (0-1.0); Monocytes % (A) 6 %; Neutrophils # (A) 3.9 k/uL (1.3-7.7); Neutrophils % (A) 68 %; Platelet Count 276 k/uL (150-450); RBC 4.08 m/uL (4.30-5.90); WBC 5.8 k/uL (3.8-10.6)
[2017-12-15 07:10] LABS: Anion Gap 12 mmol/L; Blood Urea Nitrogen 15 mg/dL (9-20); Calcium 9.1 mg/dL (8.4-10.2); Carbon Dioxide 25 mmol/L (22-30); Chloride 98 mmol/L (98-107); Glucose 86 mg/dL (74-99); Potassium 4.4 mmol/L (3.5-5.1); Sodium 135 mmol/L (137-145)
[2017-12-15] MEDS: cefTRIAXone IN SWFI 1,000 MG/10 ML SYRINGE IVP SCH (08:55)
[2017-12-15] MEDS: ASCORBIC ACID 500 MG TAB PO SCH (08:56)
[2017-12-15] MEDS: CHOLECALCIFEROL 1,000 UNIT TAB PO SCH (08:56)
[2017-12-15] MEDS: FUROSEMIDE 40 MG TAB PO SCH (08:56)
[2017-12-15] MEDS: ASPIRIN 81 MG PO SCH (08:56)
[2017-12-15] MEDS: FAMOTIDINE 20 MG TAB PO SCH (08:56)
[2017-12-15] MEDS: HEPARIN SODIUM,PORCINE 5,000 UNIT/ML 1 ML VIAL SQ SCH (08:57)
[2017-12-15] MEDS: LOSARTAN 25 MG TAB PO SCH (08:57)
--- NOTE | 2017-12-15 10:40 | P.CNPUL ---
History of Present Illness Consult date: 12/15/17 Requesting physician: Brian Cardona Reason for consult: abnormal CXR/CT (Bilateral pleural effusion) Chief complaint: Syncopal episode History of present illness: This is a very pleasant 81-year-old gentleman who follows with Dr. Gregory as his primary care physician. He has no significant past medical history. He is on mainly vitamins in the outpatient setting. He has a remote history of smoking. Senokot here to the emergency room 3 days ago after sustaining a syncopal episode at home. He had been out working in the yard became slightly dizzy and lightheaded and did pass out according to his . No other symptoms before after. Since his arrival he had a chest x-ray that revealed evidence of congestive heart failure with cardiomegaly and bilateral pleural effusions. Computed tomography scan of the head revealed no acute intracranial abnormalities. Dopplers of the lower extremities were negative for DVT. Echocardiogram revealed preserved left ventricular systolic function with an ejection fraction 50-55%. No significant valvular abnormalities. Carotid Dopplers revealed no significant stenosis. EEG was within normal limits. CT angiogram of the chest ruled out pulmonary embolism. There was noted bilateral pleural effusions. We're consulted for the same. The patient is seen today on the selective care unit. He is awake and alert in no acute distress. He denies any further dizziness no further syncopal episodes. No cardiac arrhythmias. He has been cleared for discharge by both neurology and cardiology. He has no pulmonary complaints. He is maintaining good O2 saturations in the 90s on room air. No cough or congestion. No fever chills or night sweats. Review of Systems Eyes: denies blurred vision, denies decreased vision Ears: bilateral: decreased hearing Ears, nose, mouth and throat: Denies headache, Denies sore throat Cardiovascular: Reports syncope Respiratory: Denies cough Gastrointestinal: Denies abdominal pain, Denies diarrhea, Denies nausea, Denies vomiting Genitourinary: Reports as per HPI Musculoskeletal: Denies myalgias Integumentary: Denies pruritus, Denies rash Neurological: Denies numbness, Denies weakness Psychiatric: Denies anxiety, Denies depression Endocrine: Denies fatigue, Denies weight change Past Medical History Past Medical History: No Reported History History of Any Multi-Drug Resistant Organisms: None Reported Additional Past Surgical History / Comment(s): kidney stone Past Anesthesia/Blood Transfusion Reactions: No Reported Reaction Past Psychological History: No Psychological Hx Reported Smoking Status: Former smoker Past Alcohol Use History: Rare Past Drug Use History: None Reported Medications and Allergies Home Medications Medication Instructions Recorded Confirmed Type Arginine [l-Arginine] 500 mg PO DAILY 12/12/17 12/12/17 History Ascorbic Acid [Vitamin C] 500 mg PO DAILY 12/12/17 12/12/17 History Cholecalciferol [Vitamin D3] 1,000 unit PO DAILY 12/12/17 12/12/17 History Garlic 1 tab PO DAILY 12/12/17 12/12/[address] [place] Extract [Ginkgo] 60 mg PO DAILY 12/12/17 12/12/17 History Melatonin 3 mg PO HS 12/12/17 12/12/17 History Multivitamins, Thera [Multivitamin 1 tab PO DAILY 12/12/17 12/12/17 History (formulary)] Ubidecarenone [Co Q-10] 100 mg PO DAILY 12/12/17 12/12/17 History Vision Essetial 1 tab PO DAILY 12/12/17 12/12/17 History Allergies Allergy/AdvReac Type Severity Reaction Status Date / Time No Known Allergies Allergy Verified 12/12/17 15:53 Physical Exam Vitals: Vital Signs Temp Pulse Resp BP BP Pulse Ox 12/15/17 08:03 97 F L 62 18 124/59 97 12/15/17 08:00 62 18 12/15/17 04:00 97.6 F 57 L 18 172/77 97 12/15/17 00:00 98.2 F 55 L 18 165/78 96 12/14/17 20:00 98.4 F 56 L 18 163/80 97 12/14/17 15:53 97.0 F L 55 L 18 168/78 97 12/14/17 11:09 97.0 F L 56 L 18 183/86 98 Intake and Output 12/14/17 12/15/17 12/15/17 22:59 06:59 14:59 Intake Total 490 240 Balance 490 240 Intake: IV 10 0.9 10 Oral 480 240 Other: Voiding Method Toilet Toilet Toilet # Voids 1 1 2 Weight 74.9 kg - Constitutional General appearance: no acute distress - EENT Eyes: EOMI ENT: hard of hearing - Neck Neck: no lymphadenopathy Carotids: bilateral: upstroke normal Thyroid: bilateral: normal size - Respiratory Respiratory: bilateral: rales - Cardiovascular Rhythm: regular Heart sounds: normal: S1, S2 - Gastrointestinal General gastrointestinal: no organomegaly, soft, no tenderness - Integumentary Integumentary: normal turgor - Neurologic Neurologic: CNII-XII intact - Musculoskeletal Musculoskeletal: gait normal - Psychiatric Psychiatric: A&O x's 3, appropriate affect, intact judgment & insight Results - Laboratory Findings CBC and BMP: 12/15/17 06:20 12/15/17 06:20 PT/INR, D-dimer PT 11.0 sec (9.0-12.0) 12/12/17 13:33 INR 1.1 (<1.2) 12/12/17 13:33 D-Dimer 4.34 mg/L FEU (<0.60) H 12/13/17 15:04 Abnormal lab findings: Abnormal Labs 12/12/17 12/12/17 12/12/17 13:33 13:33 13:33 RBC 4.20 L Hgb Hct APTT 21.9 L D-Dimer Sodium 135 L Potassium 5.2 H Chloride 97 L BUN 22 H Glucose 121 H POC Glucose (mg/dL) Total Protein 5.9 L Albumin 3.4 L Ur Leukocyte Esterase Urine WBC Amorphous Sediment Urine Bacteria Hyaline Casts Urine Mucus 12/12/17 12/12/17 12/13/17 14:05 20:34 05:39 RBC Hgb Hct APTT D-Dimer Sodium Potassium Chloride BUN Glucose POC Glucose (mg/dL) 162 H 116 H Total Protein Albumin Ur Leukocyte Esterase Large H Urine WBC 38 H Amorphous Sediment Rare H Urine Bacteria Rare H Hyaline Casts 25 H Urine Mucus Occasional H 12/13/17 12/13/17 12/14/17 11:24 15:04 05:39 RBC 3.55 L Hgb 10.9 L Hct 33.3 L APTT D-Dimer 4.34 H Sodium Potassium Chloride BUN Glucose POC Glucose (mg/dL) 117 H Total Protein Albumin Ur Leukocyte Esterase Urine WBC Amorphous Sediment Urine Bacteria Hyaline Casts Urine Mucus 12/14/17 12/15/17 12/15/17 05:39 06:20 06:20 RBC 4.08 L Hgb 12.4 L Hct 37.6 L APTT D-Dimer Sodium 135 L 135 L Potassium Chloride BUN Glucose POC Glucose (mg/dL) Total Protein Albumin Ur Leukocyte Esterase Urine WBC Amorphous Sediment Urine Bacteria Hyaline Casts Urine Mucus - Diagnostic Findings Chest x-ray: image reviewed CT scan - chest: image reviewed Assessment and Plan Assessment: Impression: #1 Syncopal episode of unclear etiology. #2 Bilateral pleural effusions suspect secondary to diastolic congestive heart failure. #3 History of nephrolithiasis. Plan: The patient was seen and evaluated by Dr. Islas. Chest x-ray, CAT scan and labs were all reviewed. The patient has no pulmonary complaints. Maintaining good O2 saturations in the upper 90s on room air. No plans for any thoracentesis at this time. Continue with diuretics. He could be discharged home once cleared by the other consultants. He would benefit from a follow-up in our office. We'll repeat a chest x-ray then. We'll make further recommendations based on his clinical status. I, the cosigning physician, performed a history & physical examination of the patient. Lungs sounds with faint crackles in the posterior bases. Maintaining good O2 saturations in the 90s on room air. I discussed the assessment and plan of care with my nurse practitioner, Vickie Heredia. I attest to the above note as dictated by her. Time with Patient: Greater than 30
[2017-12-15] MEDS ORDERED: MULTIVITAMINS, THERA 1 EACH TAB PO SCH (11:00)
[2017-12-15] MEDS ORDERED: FOLIC ACID 1 MG TAB PO SCH (11:00)
[2017-12-15] MEDS ORDERED: THIAMINE 100 MG TAB PO SCH (11:00)
--- NOTE | 2017-12-15 11:42 | CDI ---
Last Revision, June 2017 Documentation Clarification Form Date: 12/15/17 From: Lisa Hector Admit Date: 12/13/2017 4:31:00 PM Patient Name: Robert Gonzalez Visit Number: [id number] ATTENTION: The Clinical Documentation Specialists (CDI) and [facility] Coding Staff appreciate your assistance in clarifying documentation. Please respond to the clarification below the line at the bottom and electronically sign. The CDI & [facility] Coding staff will review the response and follow-up if needed. Please note: Queries are made part of the Legal Health Record. If you have any questions, please contact the author of this message via ITS. Dr. Juan Rojas, Mild congestive heart failure is charted in the Cardiology consult on 12/13, PN 12/14 states mild congestive heart failure and that an Echocardiogram with Doppler study was performed which revealed a normal left ventricular systolic function. In consult 12/13, PN 12/14 and H&P states "CHF exacerbation". History/Risk Factors: Kidney stones, x smoker Clinical Indicators: BNP: 1780 Echocardiogram Results: EF 50-55% Chest X Ray: 12/12 correlate for CHF exacerbation Patient noted to have bilateral leg swelling, left greater than right on admission Treatment: Coreg 3.125 mg BID, Losartan 25 mg daily, Lasix 40mg po daily Daily weights Heart Healthy diet In your professional opinion, can you please clarify the acuity and type of CHF if known? CHF ruled in CHF ruled out Diastolic Heart Failure: Acute Chronic Acute on Chronic Unable to Determine Other, please specify Please continue to document in your progress notes and discharge summary in order to capture severity of illness and risk of mortality. Include clinical findings that support your diagnosis. MTDD
[2017-12-15 14:33] VITALS: BP 138/70; PULSE 64; TEMP 97.5
--- NOTE | 2017-12-15 15:07 | P.DS ---
Providers Date of admission: 12/13/17 16:31 Attending physician: Jennifer Acevedo Consults: 12/13/17 10:42 Consult Physician Routine Consulting Provider: Juan Rojas Consult Reason/Comments: CHF on xray Do you want consulting provider notified?: Yes 12/13/17 10:43 Consult Physician Routine Consulting Provider: Danilo Calvillo Consult Reason/Comments: urination during syncopal episode Do you want consulting provider notified?: Yes 12/14/17 13:28 Consult Physician Routine Consulting Provider: Lawrence Islas Consult Reason/Comments: bilat pleural effusions Do you want consulting provider notified?: Yes Primary care physician: Fabricio Gregory Procedures: This is a pleasant 81 years old male with past medical history of kidney stone who presents because he passed out one day earlier. He was outside the house for a few minutes while he was getting inside he felt lightheadedness and then he passed out, then cement was witnessed by the patient was unresponsive for a few minutes, his eyes were open during the episodes. No tonic-clonic activity however patient has urinary incontinence as per , no bowel incontinence, no tongue biting. Patient woke up with no confusion. She denies chest pain, dyspnea, fever, change in urine or bowel habits as patient denies any dysuria or change in frequency. As per patient this is the first step To him In the ED patient had CT of the head and neck which shows no acute intracranial hemorrhage or midline shift. There is [id number] diffuse cerebral atrophy. CXR possible CHF. Also on admission patient was noted to have bilateral leg swelling, left more than right Patient has been evaluated by neurology and cardiology team. His d-dimer was high. CTPA was negative for PE but shows bilateral pleural effusion and atelectasis. Patient is breathing is normal and not labored, his oxygen saturation is normal 97% on room air. EEG was normal per neurology and they cleared him for discharge and follow-up as an outpatient. Carotid Doppler is without any hemodynamically significant stenosis. Echo showed normal left ventricular systolic function. No IVS. No evidence of tachycardia or bradycardia arrhythmias. Patient has been cleared by cardiology for discharge and follow-up in the office in 4-5 weeks as well as 30 day event monitor on discharge. Patient was started on aspirin. On the day of discharge patient's mentioned to me patient is drinking 2 to 3 shots every day, however patient states that he drinks 1 beer and 1 shot every day. Patient have no signs symptoms of alcohol withdrawal. Last drink was about 4 days ago. Patient is counseled to quit alcohol drinking. Started on vitamins. Follow-up as an outpatient. On admission he has UTI and his been treated with antibiotic. Patient will be discharged on Keflex for a few more days. Patient confirmed to me he has no known ALLERGY to Keflex before. Patient was found to have hypertension on admission and was started on Coreg, lisinopril, and Lasix and follow-up as an outpatient. i called and spoke with pcp Dr. Gregory at [phone] and discussed the case with him including the recommendation to recheck blood tests like BMP in 1 week as he was started on lasix and deb inh. Pulmonary team evaluated the patient, no indication for thoracocentesis currently and they recommended discharge the patient and may benefit from outpatient follow-up PT/OT evaluated patient and they recommended home independently Patient was cleared for discharge by cardiology and pulmonary team Patient is found stable and can be discharged however he needs follow-up as an outpatient Discharge exam GENERAL: The patient is alert and oriented x3, not in any acute distress. Well developed, well nourished. HEENT: Pupils are round and equally reacting to light. EOMI. No scleral icterus. No conjunctival pallor. Normocephalic, atraumatic. No pharyngeal erythema. No thyromegaly. CARDIOVASCULAR: S1 and S2 present. No murmurs, rubs, or gallops. PULMONARY: Chest is clear to auscultation, no wheezing or crackles. ABDOMEN: Soft, nontender, nondistended, normoactive bowel sounds. No palpable organomegaly. MUSCULOSKELETAL: No joint swelling or deformity. EXTREMITIES: No cyanosis, clubbing, or pedal edema. NEUROLOGICAL: Gross neurological examination did not reveal any focal deficits. SKIN: No rashes. Patient Condition at Discharge: Good Plan - Discharge Summary Discharge Rx Participant: No New Discharge Prescriptions: No Action Multivitamins, Thera [Multivitamin (formulary)] 1 tab PO DAILY Cholecalciferol [Vitamin D3] 1,000 unit PO DAILY Ascorbic Acid [Vitamin C] 500 mg PO DAILY Vision Essetial 1 tab PO DAILY Ubidecarenone [Co Q-10] 100 mg PO DAILY Melatonin 3 mg PO HS Ginkgo Biloba [place] Extract [Ginkgo] 60 mg PO DAILY Garlic 1 tab PO DAILY Arginine [l-Arginine] 500 mg PO DAILY Discharge Medication List Arginine [l-Arginine] 500 mg PO DAILY 12/12/17 [History] Ascorbic Acid [Vitamin C] 500 mg PO DAILY 12/12/17 [History] Cholecalciferol [Vitamin D3] 1,000 unit PO DAILY 12/12/17 [History] Garlic 1 tab PO DAILY 12/12/17 [History] Ginkgo Biloba [place] Extract [Ginkgo] 60 mg PO DAILY 12/12/17 [History] Melatonin 3 mg PO HS 12/12/17 [History] Multivitamins, Thera [Multivitamin (formulary)] 1 tab PO DAILY 12/12/17 [History ] Ubidecarenone [Co Q-10] 100 mg PO DAILY 12/12/17 [History] Vision Essetial 1 tab PO DAILY 12/12/17 [History] Aspirin 81 mg PO DAILY #30 chew 12/15/17 [Rx] Carvedilol [Coreg] 3.125 mg PO BID-W/MEALS #60 tab 12/15/17 [Rx] Cephalexin [Keflex] 500 mg PO Q8HR 3 Days #9 cap 12/15/17 [Rx] Famotidine [Pepcid] 20 mg PO BID #60 tab 12/15/17 [Rx] Folic Acid 1 mg PO DAILY@1200 #30 tab 12/15/17 [Rx] Furosemide [Lasix] 40 mg PO DAILY #30 tab 12/15/17 [Rx] Losartan [Cozaar] 25 mg PO DAILY #30 tab 12/15/17 [Rx] Thiamine [Vitamin B-1] 100 mg PO DAILY@1200 #30 tab 12/15/17 [Rx] Follow up Appointment(s)/Referral(s): Juan Rojas MD [STAFF PHYSICIAN] - 01/25/18 9:45 am (Wednesday) Danilo Calvillo MD [STAFF PHYSICIAN] - 2 Weeks (Office to call with follow up appointment.) Fabricio Gregory DO [Primary Care Provider] - 12/22/17 2:20 pm (Wednesday with NADINE Wade) Patient Instructions/Handouts: Syncope (DC), Fall Prevention for Older Adults ( DC) Activity/Diet/Wound Care/Special Instructions: needs event monitor-ordered on 12/15 at 1030
--- NOTE | 2017-12-21 15:40 | P.PN ---
Progress Note - Text Progress Note Date: 12/21/17 This is an addendum to the cardiology progress note. Patient did have mild congestive heart failure acute on chronic, with preserved left ventricular systolic function. DNP note has been reviewed, I agree with a documented findings and plan of care. Patient was seen and examined.
== END 2017-12-15 16:50 | disposition home or self-care (01) | DRG 292 ==
LOC: EC 13:06 → INTOOBSV 15:07 → OBSVTOIN 15:07 → UNDOADMOB 15:07 → 6SEL 15:07 → OBSVTOIN 12-13 16:31
PROVIDERS: ADMIT Internal Medicine; ATTEND Internal Medicine
DX: I11.0 Hypertensive heart disease with heart failure (principal); E87.1 Hypo-osmolality and hyponatremia; J98.11 Atelectasis; N39.0 Urinary tract infection, site not specified; I67.82 Cerebral ischemia; E87.5 Hyperkalemia; R32 Unspecified urinary incontinence; R79.1 Abnormal coagulation profile; S09.90XA Unspecified injury of head, initial encounter; X58.XXXA Exposure to other specified factors, initial encounter; Z87.442 Personal history of urinary calculi; Z87.891 Personal history of nicotine dependence; R55 Syncope and collapse; Z71.41 Alcohol abuse counseling and surveillance of alcoholic; I50.23 Acute on chronic systolic (congestive) heart failure
CPT/HCPCS: 36415; 70450; 71046; 71275; 72125; 80048; 80053; 81001; 83735; 83880; 84484; 85025; 85379; 85610; 85730; 93005; 93270; 93271; 93306; 93880; 93970; 95819; 99285

== ENCOUNTER 2018-02-04 06:49 | Day surgery (SDC) | payer MEDICARE ==
[2018-01-31 08:57] VITALS: BMI 22.9
[~2018-02-04 06:49] MED LIST: SODIUM CHLORIDE 0.9% 1,000 ML IV SCH; ceFAZolin IN SWFI 2 GM/20 ML SYRINGE IVP ONE
[2018-02-04 07:29] VITALS: RESP 16; TEMP 98.1
[2018-02-04] MEDS ORDERED: LIDOCAINE 1% INJ 10MG/ML (20 ML MDV) SQ ONE (11:53)
[2018-02-04] MEDS ORDERED: MIDAZOLAM 2 MG/2 ML VIAL IVP ONE (11:53)
[2018-02-04 12:51] VITALS: BP 128/72; PULSE 48
--- NOTE | 2018-02-04 13:01 | PCN ---
PROCEDURE NOTE DATE OF SERVICE: 02/04/2018 PROCEDURE: Loop recorder insertion PERFORMED BY: Dr. Nirmal Rojas. ANESTHESIA: Moderate conscious sedation time was about 15 minutes. CLINICAL INFORMATION: Mr. Robert Gonzalez is an 82-year-old gentleman seen by me in the hospital following a syncope and collapse. His event monitor for 1 month did not reveal any significant tachy or bradyarrhythmias. However, in view of his significant episode of syncope with persistent near syncopal spells, I am recommending a loop recorder. PROCEDURE NOTE: Under local anesthesia and strict aseptic precautions, using the tool that is provided with the kit, a stab incision was made in the 4th left intercostal space in the lateral direction. The plunger and the insertion tool were used to advance the device subcutaneously. The device position was good. The signal was excellent and signal was about 0.3 mV. A single suture was used. Syncope protocol was set up. DEVICE INFORMATION: Dental Technician [id number], device is [employer] Linq, serial number is [id number]. Patient tolerated procedure well without complications and I discussed in detail with the patient as well as his and daughter. MMODL / IJN: [id number] /
== END 2018-02-04 12:51 | disposition home or self-care (01) ==
LOC: CATHEP 06:49
PROVIDERS: ATTEND Internal Medicine Interventional Cardiology
DX: R55 Syncope and collapse (principal); I10 Essential (primary) hypertension; Z87.891 Personal history of nicotine dependence; Z79.82 Long term (current) use of aspirin; Z79.899 Other long term (current) drug therapy
CPT/HCPCS: 33282; C1764; J2250; J2001; J0690

== ENCOUNTER → 2021-05-21 | Outpatient (CLI) | payer MEDICARE ==
--- NOTE | 2021-05-22 07:33 | CT ---
EXAMINATION TYPE: CT brain wo con DATE OF EXAM: 05/21/2021 HISTORY: Syncope, hypertension. CT DLP: 1033.5 mGycm. Automated Exposure Control for Dose Reduction was Utilized. TECHNIQUE: CT scan of the head is performed without contrast. COMPARISON: CT brain December 12, 2017. FINDINGS: There is no acute intracranial hemorrhage or midline shift identified. There is mild to m oderate diffuse ventricular and sulcal prominence consistent with diffuse age-related cerebral atroph y. There is mild to moderate low-attenuation in the periventricular white matter consistent with chr onic small vessel ischemic change. The globes are intact . Deformed or small caliber left maxillary sinus with mild mucosal thickening is partially imaged. IMPRESSION: No acute intracranial hemorrhage or midline shift. There is mild to moderate diffuse ag e-related cerebral atrophy and chronic small vessel ischemic change redemonstrated. No significant ch amelia from prior study.
== END | disposition home or self-care (01) ==
LOC: RADCTMAIN 16:33
PROVIDERS: ATTEND Family Medicine
DX: G31.9 Degenerative disease of nervous system, unspecified (principal); I67.82 Cerebral ischemia
CPT/HCPCS: 70450

== ENCOUNTER → 2021-06-10 | Outpatient (CLI) | payer MEDICARE ==
--- NOTE | 2021-06-10 23:50 | US ---
EXAMINATION TYPE: US carotid duplex BILAT DATE OF EXAM: 06/10/2021 COMPARISON: US, CT head CLINICAL HISTORY: R55 syncope, I10 hypertension. syncopal episode EXAM MEASUREMENTS: RIGHT: Peak Systolic Velocity (PSV) cm/sec ----- Right CCA: 52.9 ----- Right ICA: 156.8 prox ----- Right ECA: 118.9 ICA/CCA ratio: 3.0 RIGHT: End Diastole cm/sec ----- Right CCA: 0.0 ----- Right ICA: 26.8 ----- Right ECA: 0.0 LEFT: Peak Systolic Velocity (PSV) cm/sec ----- Left CCA: 51.1 ----- Left ICA: 147.0 prox ----- Left ECA: 83.1 ICA/CCA ratio: 2.9 LEFT: End Diastole cm/sec ----- Left CCA: 10.1 ----- Left ICA: 26.8 ----- Left ECA: 0.0 VERTEBRALS (direction of flow): Right Vertebral: Antegrade Left Vertebral: Antegrade Rhythm: Normal Moderate, irregular and mixed plaque is noted at bilateral carotid bifurcation with abnormally elevat ed PSV in bilateral ICA. IMPRESSION: 1. Bilateral atheromatous plaquing with moderate stenosis between 50-69% at the internal carotid nely derek. Criteria for Assigning % of Stenosis / Diameter reduction (Estimation based on the indirect measurements of the internal carotid artery velocities (ICA PSV). 1. Normal (no stenosis)=ICA PSV < 125 cm/s: ratio < 2.0: ICA EDV<40 cm/s. 2. Less than 50% stenosis=ICA PSV < 125 cm/s: ratio < 2.0: ICA EDV<40 cm/s. 3. 50 to 69% stenosis=ICA PSV of 125 to 230 cm/s: ration 2.0 ? 4.0: ICA EDV 40-100 cm/s. 4. Greater than 70% stenosis to near occlusion= ICA PSV > 230 cm/s: ratio > 4.0: ICA EDV > 100 cm/s. 5. Near occlusion= ICA PSV velocities may be low or undetectable: variable ratio and ICA EDV. 6. Total occlusion=unable to detect flow.
== END | disposition home or self-care (01) ==
LOC: RADUSWWP 15:26
PROVIDERS: ATTEND Family Medicine
DX: E78.2 Mixed hyperlipidemia (principal); I10 Essential (primary) hypertension; R00.1 Bradycardia, unspecified
CPT/HCPCS: 93880

== ENCOUNTER → 2022-06-22 | Outpatient (CLI) | payer MEDICARE ==
--- NOTE | 2022-06-22 13:55 | US ---
EXAMINATION TYPE: US carotid duplex BILAT DATE OF EXAM: 06/22/2022 COMPARISON: NONE CLINICAL HISTORY: E78.2 Mixed hyperlipidemia I10 HTN R55 Syncope. h/o stenosis, syncope, no h/o strok e TECHNIQUE: Carotid duplex ultrasound examination. Indirect Doppler criteria was utilized. FINDINGS: EXAM MEASUREMENTS: RIGHT: Peak Systolic Velocity (PSV) cm/sec ----- Right CCA: 56.9 ----- Right ICA: 306 ----- Right ECA: 156 ICA/CCA ratio: 5.3 RIGHT: End Diastole cm/sec ----- Right CCA: 11.0 ----- Right ICA: 66.8 ----- Right ECA: 0.0 LEFT: Peak Systolic Velocity (PSV) cm/sec ----- Left CCA: 62.9 ----- Left ICA: 348 ----- Left ECA: 82.6 ICA/CCA ratio: 5.5 LEFT: End Diastole cm/sec ----- Left CCA: 10.1 ----- Left ICA: 68.9 ----- Left ECA: 5.1 VERTEBRALS (direction of flow): Right Vertebral: Antegrade Left Vertebral: Antegrade Rhythm: Normal [facility] NOTES: Extensive plaque seen bilaterally with increased velocities at bilateral proximal ICA's IMPRESSION: Greater than 70% stenosis of the bilateral carotid bifurcations by ratio and peak systolic velocity. Criteria for Assigning % of Stenosis / Diameter reduction (Estimation based on the indirect measurements of the internal carotid artery velocities (ICA PSV). 1. Normal (no stenosis)=ICA PSV < 125 cm/s: ratio < 2.0: ICA EDV<40 cm/s. 2. Less than 50% stenosis=ICA PSV < 125 cm/s: ratio < 2.0: ICA EDV<40 cm/s. 3. 50 to 69% stenosis=ICA PSV of 125 to 230 cm/s: ration 2.0 ? 4.0: ICA EDV 40-100 cm/s. 4. Greater than 70% stenosis to near occlusion= ICA PSV > 230 cm/s: ratio > 4.0: ICA EDV > 100 cm/s. 5. Near occlusion= ICA PSV velocities may be low or undetectable: variable ratio and ICA EDV. 6. Total occlusion=unable to detect flow.
== END | disposition home or self-care (01) ==
LOC: RADUSWWP 12:05
PROVIDERS: ATTEND Family Medicine
DX: E78.2 Mixed hyperlipidemia (principal); I10 Essential (primary) hypertension; I65.23 Occlusion and stenosis of bilateral carotid arteries; I12.9 Hypertensive chronic kidney disease with stage 1 through stage 4 chronic kidney disease, or unspecified chronic kidney disease; R55 Syncope and collapse; R00.1 Bradycardia, unspecified; F03.B0 Unspecified dementia, moderate, without behavioral disturbance, psychotic disturbance, mood disturbance, and anxiety
CPT/HCPCS: 93880